=== PATIENT | female | born 1955 | race Two or more races ===

== ENCOUNTER 2018-09-09 08:44 | Outpatient (CLI) | payer OTHER | END 2018-09-09 08:57 | disposition home or self-care (01) | LOC: TOM 08:44 | DX: C18.8 Malignant neoplasm of overlapping sites of colon (principal); K57.32 Diverticulitis of large intestine without perforation or abscess without bleeding; K63.5 Polyp of colon; J44.9 Chronic obstructive pulmonary disease, unspecified; R19.4 Change in bowel habit; D64.0 Hereditary sideroblastic anemia; K57.30 Diverticulosis of large intestine without perforation or abscess without bleeding ==